=== PATIENT | female | born 1965 | race Caucasian/White ===

== ENCOUNTER 2024-06-15 09:36 | Emergency (ER) | payer OTHER, BC ==
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
[2024-06-15 11:01] VITALS: BP 149/99; PULSE 85; RESP 14; TEMP 98
== END 2024-06-15 11:03 | disposition home or self-care (01) ==
LOC: EC 09:36
CPT/HCPCS: 70450; 71045; 72125; 72131; 99284